=== PATIENT | male | born 1985 ===

== ENCOUNTER 2019-08-05 22:56 | Emergency (ER) | payer SELFPAY ==
[2019-08-05] MEDS ORDERED: Ketorolac Tromethamine 30 MG/ML VIAL ONE (23:30)
== END 2019-08-05 23:55 | disposition home or self-care (01) ==
LOC: ERS 22:56
DX: M54.5 Low back pain (principal); M79.10 Myalgia, unspecified site
CPT/HCPCS: 96372; 99283; J1885